=== PATIENT | male | born 2005 | race Caucasian/White ===

== ENCOUNTER 2025-06-02 22:22 | Emergency (ER) | payer MEDICAID ==
[~2025-06-02] VITALS: Ht 188 cm; Wt 88.5 kg
[2025-06-02 23:44] LABS: PLATELET COUNT (AUTO) 164 K/uL (150-450); RED BLOOD CELL COUNT(AUTO) 5.03 MIL/uL (4.5-6.0); RED CELL DISTRIBUTION WIDTH 13.4 % (11.5-15.0); WHITE BLOOD COUNT (AUTO) 6.8 K/uL (4.3-11.0)
[2025-06-02] MEDS ORDERED: ONDANSETRON HCL/PF 4 MG/2 ML VIAL ONE (23:48)
[2025-06-02] MEDS ORDERED: MORPHINE SULFATE INJ 4 MG/ML DISP.SYRIN ONE (23:49)
[2025-06-02] MEDS: ONDANSETRON HCL/PF 4 MG/2 ML VIAL IVP ONE (23:55)
[2025-06-02] MEDS: MORPHINE SULFATE INJ 2 MG/ML DISP.SYRIN IV ONE (23:55)
[2025-06-02] MEDS: IV NS 0.9% 1,000 ML BAG IV ONE (23:55)
[2025-06-02 23:56] LABS: APPEARANCE,URINE CLEAR (CLEAR); BLOOD, URINE 2+ Ery/uL (NEGATIVE); LEUKOCYTE ESTERASE ,URINE NEGATIVE (NEGATIVE); NITRITE, URINE NEGATIVE (NEGATIVE); UGLUCOSE NEGATIVE (NEGATIVE)
[2025-06-02 23:58] LABS: CALCIUM, SERUM 9.6 mg/dL (8.5-10.1); CREATININE 1.4 mg/dL (0.6-1.3); SODIUM SERUM 138.0 mmol/L (136-145); UREA NITROGEN, BLOOD 20.0 mg/dL (7-18)
[2025-06-03 00:02] LABS: ASPARTATE AMINOTRANSFERASE 25.0 U/L (15-37); TOTAL PROTEIN, SERUM 8.1 g/dL (6.4-8.2)
[2025-06-03] MEDS ORDERED: ONDANSETRON HCL/PF 4 MG/2 ML VIAL ONE (00:14)
[2025-06-03] MEDS: ONDANSETRON HCL/PF 4 MG/2 ML VIAL IV ONE (00:16)
[2025-06-03 00:17] LABS: ADD URINE CULTURE NO; SQUAMOUS EPITHELIAL CELL,UR 0-2 /HPF (None Seen)
[2025-06-03] MEDS ORDERED: IBUP-1957 PO (00:40)
[2025-06-03] MEDS ORDERED: TAMS-12 PO (00:40)
[2025-06-03] MEDS ORDERED: ONDA4TAB5 PO (00:43)
[2025-06-03] MEDS ORDERED: HYDR-3972 PO (00:43)
[2025-06-03] MEDS ORDERED: KETOROLAC TROMETHAMINE INJ 30 MG/ML VIAL ONE (00:57)
[2025-06-03] MEDS: KETOROLAC TROMETHAMINE INJ 30 MG/ML VIAL IV ONE (01:30)
[2025-06-03 01:36] VITALS: BP 136/84; TEMP 98.7; O2SAT 98
== END 2025-06-03 01:37 | disposition home or self-care (01) ==
LOC: ER 22:30
DX: N13.2 Hydronephrosis with renal and ureteral calculous obstruction (principal); Z79.1 Long term (current) use of non-steroidal anti-inflammatories (NSAID)
CPT/HCPCS: 99285; 74176; 96374; 96361; 96375 ×2; 85025; 80048; 83690; 80076; 81001; 36415; 96376; J2270; J2405 ×2; J1885